=== PATIENT | male | born 1985 | race Caucasian/White ===

== ENCOUNTER 2017-09-06 12:03 | Emergency (ER) | payer OTHER ==
[2017-09-06 12:39] VITALS: TEMP 98.9
[2017-09-06] MEDS ORDERED: ORPHENADRINE 30 MG/ML 2 ML VIAL IM STA (13:07)
[2017-09-06] MEDS ORDERED: KETOROLAC 30 MG/ML 1 ML VIAL IM STA (13:07)
--- NOTE | 2017-09-06 13:58 | XR ---
EXAMINATION TYPE: XR lumbosacral spine min 4V , 5 YEARS DATE OF EXAM ORDERED: 09/06/2017 HISTORY: Pain. COMPARISON: None. FINDINGS: Vertebral body height and alignment are maintained. There is no spondylolysis or spondylol isthesis. No fractures are seen. There is mild facet arthropathy in the L5-S1 facets bilaterally. The pedicles are intact. IMPRESSION: 1. NO ACUTE OSSEOUS LESION. 2. MINIMAL DEGENERATIVE CHANGE.
--- NOTE | 2017-09-06 14:42 | ED ---
Back Pain HPI - General Chief Complaint: Back Pain/Injury Stated Complaint: Back Pain Time Seen by Provider: 09/06/17 12:40 Source: patient Limitations: no limitations - History of Present Illness Initial Comments: 32-year-old male patient presented to the emergency department today for complaints of acute low back pain. Patient states a couple hours prior to arrival he was working on a car, states he was pulling on one part of the engine when he felt something wrench in his lower back. Patient states that since then he has been having sharp stabbing pains to the low back. He states that it radiates down into bilateral buttocks. He denies any radiation of the pain to his legs. Denies any numbness or tingling in his lower extremities. Denies any saddle anesthesia. Denies any loss of bowel or bladder control. He states he has had intermittent back pain throughout the past however nothing like this. He denies falling down or striking his back on anything. Patient denies any headache, neck pain, chest pain, shortness of breath, dizziness, weakness, abdominal pain, nausea, vomiting, or difficulties with bowel movements or urination. - Related Data Previous Rx's Medication Instructions Recorded Acetaminophen-Codeine 300-30mg 1 tab PO Q6H PRN #15 tablet 09/06/17 [Tylenol #3] Cyclobenzaprine [Flexeril] 10 mg PO TID #15 tab 09/06/17 Ibuprofen [Motrin] 600 mg PO Q8HR PRN #30 tab 09/06/17 Allergies Allergy/AdvReac Type Severity Reaction Status Date / Time Sulfa (Sulfonamide Allergy Anaphylaxis Verified 09/06/17 12:39 Antibiotics) Review of Systems ROS Statement: Those systems with pertinent positive or pertinent negative responses have been documented in the HPI. ROS Other: All systems not noted in ROS Statement are negative. Past Medical History Past Medical History: No Reported History History of Any Multi-Drug Resistant Organisms: None Reported Past Surgical History: No Surgical Hx Reported Past Psychological History: No Psychological Hx Reported Smoking Status: Never smoker Past Alcohol Use History: None Reported Past Drug Use History: None Reported General Exam Limitations: no limitations General appearance: alert, in no apparent distress, other (This is a well- developed, well-nourished adult male patient in no acute distress. Vital signs upon presentation are temperature 98.9F, pulse 72, respirations 20, blood pressure 152/87, pulse ox 99% on room air.) Eye exam: Present: normal appearance, PERRL, EOMI. Absent: scleral icterus, conjunctival injection, periorbital swelling ENT exam: Present: normal exam, normal oropharynx, mucous membranes moist Neck exam: Present: normal inspection. Absent: tenderness, meningismus, lymphadenopathy Respiratory exam: Present: normal lung sounds bilaterally. Absent: respiratory distress, wheezes, rales, rhonchi, stridor Cardiovascular Exam: Present: regular rate, normal rhythm, normal heart sounds. Absent: systolic murmur, diastolic murmur, rubs, gallop, clicks GI/Abdominal exam: Present: soft, normal bowel sounds. Absent: distended, tenderness, guarding, rebound, rigid Extremities exam: Present: normal inspection, full ROM, normal capillary refill , other (Lower extremities are pink, warm, and dry. Cap refills less than 3 seconds. Posttibial pulses are 2+ and equal bilaterally.). Absent: tenderness , pedal edema, joint swelling, calf tenderness Back exam: Present: normal inspection, paraspinal tenderness (Lumbar), other ( No evidence of rash, abrasion, or ecchymosis. The skin is unremarkable.). Absent: vertebral tenderness Neurological exam: Present: alert, oriented X3, CN II-XII intact Psychiatric exam: Present: normal affect, normal mood Skin exam: Present: warm, dry, intact, normal color. Absent: rash Course Vital Signs 09/06/17 12:37 Temperature 98.9 F Pulse Rate 72 Respiratory 20 Rate Blood Pressure 152/87 O2 Sat by Pulse 99 Oximetry Medical Decision Making - Medical Decision Making 32-year-old male patient presented to the emergency department today for evaluation of acute lower back pain. Physical examination is unremarkable. Patient has good lower extremities strength. Neurovascular status is intact. X -ray was obtained and showed no acute process. He'll be discharged home with anti-inflammatory pain medication, Tylenol 3, and muscle relaxers. He is educated regarding icing and heat application. He is instructed to follow-up with his primary care physician for recheck in 1-2 days. Instructed to follow- up with orthopedics if his symptoms don't improve over the next week. He is instructed to return here immediate for any new, worsening, or concerning symptoms. He verbalizes understanding and agrees with this plan. - Radiology Data Radiology results: report reviewed, image reviewed 4 views of the lumbosacral spine are submitted, vertebral height and alignment are maintained. There is no spondylosis or spondylolisthesis. No fractures are seen. There is mild facet arthropathy and L5-S1 facets bilaterally. The pedicles are intact. Impression by Dr. Carlson shows no acute osseous lesion. Minimal direct degenerative change. Disposition Clinical Impression: Acute low back pain Disposition: HOME SELF-CARE Condition: Good Instructions: Low Back Strain (ED), Acute Low Back Pain (ED), Lower Back Exercises (ED), Warm Compress or Soak (ED) Additional Instructions: Apply ice to the painful areas for the first 24 hours and switch to warm moist heat. Take medications as directed. Tomorrow begin gentle lower back stretching. If symptoms are not improved over the next week have repeat evaluation by orthopedic physician. Follow-up with her primary care physician for recheck in 1-2 days. Return here immediately for any new, worsening, or concerning symptoms. Prescriptions: Acetaminophen-Codeine 300-30mg [Tylenol #3] 1 tab PO Q6H PRN #15 tablet PRN Reason: Pain Cyclobenzaprine [Flexeril] 10 mg PO TID #15 tab Ibuprofen [Motrin] 600 mg PO Q8HR PRN #30 tab PRN Reason: Pain Referrals: None,Stated [Primary Care Provider] - 1-2 days Alberto Sage DO [Doctor of Osteopathic Medicine] - 1-2 days Time of Disposition: 14:41
[2017-09-06 15:08] VITALS: BP 132/75; PULSE 74; RESP 16
== END 2017-09-06 14:58 | disposition home or self-care (01) ==
LOC: EC 12:03
DX: M54.5 Low back pain (principal); M46.97 Unspecified inflammatory spondylopathy, lumbosacral region; Z88.2 Allergy status to sulfonamides
CPT/HCPCS: 72110; 99283; 96372 ×2; J2360; J1885

== ENCOUNTER 2022-11-06 10:20 | Emergency (ER) | payer SELFPAY ==
[2022-11-06 10:33] VITALS: BP 160/89; PULSE 103; RESP 18; TEMP 98.3
[2022-11-06] MEDS ORDERED: ORPHENADRINE 30 MG/ML 2 ML VIAL IM STA (10:45)
[2022-11-06] MEDS ORDERED: KETOROLAC 15 MG/ML 1 ML VIAL IM STA (10:45)
--- NOTE | 2022-11-06 11:31 | ED ---
Back Pain HPI - General Chief Complaint: Back Pain/Injury Stated Complaint: back pain Time Seen by Provider: 11/06/22 10:40 Source: patient, RN notes reviewed Limitations: physical limitation - History of Present Illness Initial Comments: Patient is a 37-year-old male presenting to the emergency room with back pain causing neuropathy in bilateral legs. He reports history of chronic back pain issues with increased intensity over the last 4 days while lifting regularly during a recent move. He states that today while attempting to get out of the vehicle his pain became quite severe causing him to present to the emergency room. He denies any trauma. He reports some difficulty with range of motion ambulation secondary to pain. He denies any overt weakness not directly related to pain, bowel or bladder incontinence, saddle paresthesia or other red flag symptoms for cauda equina. With the exception of his back pain he has no other significant past medical history. - Related Data Previous Rx's Medication Instructions Recorded Cyclobenzaprine HCl 10 mg PO TID PRN 7 Days #21 tab 11/06/22 Ketorolac [Toradol] 10 mg PO Q8H PRN 5 Days #15 tab 11/06/22 Allergies Allergy/AdvReac Type Severity Reaction Status Date / Time Sulfa (Sulfonamide Allergy Anaphylaxis Verified 11/06/22 11:09 Antibiotics) Review of Systems ROS Statement: Those systems with pertinent positive or pertinent negative responses have been documented in the HPI. ROS Other: All systems not noted in ROS Statement are negative. Past Medical History Past Medical History: Musculoskeletal Disorder Additional Past Medical History / Comment(s): Back pain History of Any Multi-Drug Resistant Organisms: None Reported Past Surgical History: No Surgical Hx Reported Past Psychological History: No Psychological Hx Reported Smoking Status: Vaper Past Alcohol Use History: None Reported Past Drug Use History: None Reported General Exam - General Exam Comments Initial Comments: GENERAL: No acute distress, well developed, well nourished. HEENT: Normocephalic, atraumatic. Pupils equal, round, reactive to light. Moist mucous membranes. LUNGS: No respiratory distress. HEART: Regular rate. ABDOMEN: Non-distended. BACK: Normal inspection. Lower lumbar vertebral tenderness and appears spinal spasms noted EXTREMITIES: No edema. No tenderness. Moves all extremities lower extremity movement limited by pain. Gait observed limited by pain but steady. NEUROLOGIC: Alert & oriented x 3. CN II-XII grossly intact. PSYCHIATRIC: Normal affect and behavior. DERMATOLOGIC: Skin intact, without rashes or lesions noted. Limitations: physical limitation Course Vital Signs 11/06/22 10:30 Temperature 98.3 F Pulse Rate 103 H Respiratory 18 Rate Blood Pressure 160/89 O2 Sat by Pulse 100 Oximetry Medical Decision Making - Medical Decision Making Was pt. sent in by a medical professional or institution (, [facility], PERSONNEL RECRUITER, urgent care, hospital, or [place] [facility] facility...) When possible be specific @ -No Did you speak to anyone other than the patient for history (EMS, parent, family, police, friend...)? What history was obtained from this source @ -No Did you review nursing and triage notes (agree or disagree)? Why? @ -I reviewed and agree with nursing and triage notes Were old charts reviewed (outside hosp., previous admission, EMS record, old EKG, old radiological studies, urgent care reports/EKG's, [place] [facility] facility records)? Report findings @ -No old charts were reviewed Differential Diagnosis (chest pain, altered mental status, abdominal pain women, abdominal pain men, vaginal bleeding, weakness, fever, dyspnea, syncope, headache, dizziness, GI bleed, back pain, seizure, CVA, palpatations, mental health, musculoskeletal)? @ -Differential Back Pain: Strain, zoster, cauda equina syndrome, epidural abscess, vertebral osteo myelitis, discitis, fracture, subluxation, disc herniation, DJD, spinal stenosis, dissection, AAA, pancreatitis, peptic ulcer disease, pyelonephritis, kidney stone, this is not meant to be an all-inclusive list. EKG interpreted by me (3pts min.). @ -None done X-rays interpreted by me (1pt min.). @ -None done CT interpreted by me (1pt min.). @ -None done U/S interpreted by me (1pt. min.). @ -None done What testing was considered but not performed or refused? (CT, X-rays, U/S, labs)? Why? @ -X-ray lumbar spine considered but deferred due to lack of trauma, patient's age, and known previous degenerative disc disease. What meds were considered but not given or refused? Why? @ -None Did you discuss the management of the patient with other professionals (professionals i.e. Dr. PA, PERSONNEL RECRUITER, lab, RT, psych nurse, mental health social worker, family lawyer, teacher, transport corps officer, case aide)? Give summary @ -No Was smoking cessation discussed for >3mins.? @ -No Was critical care preformed (if so, how long)? @ -No Were there social determinants of health that impacted care today? How? (Homelessness, low income, unemployed, alcoholism, drug addiction, transportation, low edu. Level, literacy, decrease access to med. care, usp, rehab)? @ -No Was there de-escalation of care discussed even if they declined (Discuss DNR or withdrawal of care, Hospice)? DNR status @ -No What co-morbidities impacted this encounter? (DM, HTN, Smoking, COPD, CAD, Cancer, CVA, ARF, Chemo, Hep., AIDS, mental health diagnosis, sleep apnea, morbid obesity)? @ -Back pain, obesity Was patient admitted / discharged? Hospital course, mention meds given and route, prescriptions, significant lab abnormalities, going to OR and other pertinent info. @ -37-year-old male presenting to the emergency room with complaints of severe back pain which has been impressively worse over the last 4 days while lifting heavy objects while moving. He has not taken any medication to treat his symptoms today. No indication for diagnostic imaging at this time. Will give Norflex and Toradol and reassess. Pain improved with Norflex and Toradol along with mobility after medication. No indication for further medication or workup at this time. Advised low back exercises, following up with primary care for possible referral to or the spine for further evaluation and treatment for acute on chronic back pain. Will give Toradol and Flexeril to utilize for pain as needed advising no other NSAIDs while taking Toradol. Advised avoidance of heavy lifting. Questions and concerns answered. Return parameters to the emergency room discussed. Will discharge patient home in stable condition on anti-inflammatories and muscle relaxers to treat acute on chronic back pain advising follow-up with primary care provider. Undiagnosed new problem with uncertain prognosis? @ -No Drug Therapy requiring intensive monitoring for toxicity (Heparin, Nitro, Insulin, Cardizem)? @ -No Were any procedures done? @ -No Diagnosis/symptom? @ -Low back pain with bilateral sciatica Acute, or Chronic, or Acute on Chronic? @ -Acute on chronic Uncomplicated (without systemic symptoms) or Complicated (systemic symptoms)? @ -Uncomplicated Side effects of treatment? @ -No Exacerbation, Progression, or Severe Exacerbation? @ -No Poses a threat to life or bodily function? How? (Chest pain, [place], [place], pneumonia, PE, COPD, DKA, ARF, appy, cholecystitis, CVA, Diverticulitis, Homicidal, Suicidal, threat to staff... and all critical care pts) @ -No. Case discussed with Dr. River. Disposition Clinical Impression: Back pain of lumbar region with sciatica Disposition: HOME SELF-CARE Condition: Stable Instructions (If sedation given, give patient instructions): Acute Low Back Pain (ED), Lower Back Exercises (ED) Additional Instructions: utilize Toradol and Flexeril as needed for back pain and spasms. Do not take other NSAIDs been taking Toradol. Low back exercises as instructions attached are encouraged. Please follow-up with your primary care provider and if ne cessary orthopedic spinal specialist. Avoid heavy lifting. Please return to the Emergency Department if symptoms worsen or any other concerns. Prescriptions: Cyclobenzaprine HCl 10 mg PO TID PRN 7 Days #21 tab PRN Reason: Spasms Ketorolac [Toradol] 10 mg PO Q8H PRN 5 Days #15 tab PRN Reason: Pain Is patient prescribed a controlled substance at d/c from ED?: No Referrals: None,Stated [Primary Care Provider] - 1-2 days Time of Disposition: 12:14
== END 2022-11-06 12:41 | disposition home or self-care (01) ==
LOC: EC 10:20
DX: M54.41 Lumbago with sciatica, right side (principal); M54.42 Lumbago with sciatica, left side; F17.290 Nicotine dependence, other tobacco product, uncomplicated; Z88.2 Allergy status to sulfonamides
CPT/HCPCS: 99283 ×2; 96372 ×3; J2360; J1885